=== PATIENT | male | born 1960 | race Caucasian/White ===

== ENCOUNTER 2020-07-09 17:01 | Emergency (ER) | payer OTHER ==
[2020-07-09 17:05] VITALS: RESP 18; TEMP 98
[2020-07-09] MEDS ORDERED: MECLIZINE 25 MG TAB PO STA (17:38)
--- NOTE | 2020-07-09 17:40 | ED ---
General Adult HPI - General Chief complaint: Dizziness Stated complaint: dizziness Time Seen by Provider: 07/09/20 17:05 Source: patient, RN notes reviewed, old records reviewed Mode of arrival: wheelchair Limitations: no limitations - History of Present Illness Initial comments: This is a 60-year-old male who presents emergency department stating that while he was at work he stood up and felt something was moving. Patient states when he walked he felt like things were swimming in front of him. Patient states she's had this happen once before while he was at work. Patient states recently he had a little upper respiratory cold and he states he still not completely over that. Patient denies any fever chills per patient denies any headache. Pa tient denies any numbness or weakness. Patient denies any chest pain difficulty breathing shortness breath or palpitations. Patient denies abdominal pain patient denies nausea vomiting diarrhea. Patient denies any new deafness or ringing in the ears. Patient states she does have quite a bit of waxes at times. - Related Data Previous Rx's Medication Instructions Recorded Meclizine [Antivert] 25 mg PO TID #20 tab 07/09/20 Allergies Allergy/AdvReac Type Severity Reaction Status Date / Time bee venom protein (honey bee) Allergy Rapid Verified 07/09/20 17:05 Heart Rate Review of Systems ROS Statement: Those systems with pertinent positive or pertinent negative responses have been documented in the HPI. ROS Other: All systems not noted in ROS Statement are negative. Past Medical History Past Medical History: Hypertension History of Any Multi-Drug Resistant Organisms: None Reported Past Surgical History: Hernia Repair Past Psychological History: No Psychological Hx Reported Smoking Status: Never smoker Past Alcohol Use History: None Reported Past Drug Use History: None Reported General Exam - General Exam Comments Initial Comments: GENERAL: Patient is well-developed and well-nourished. Patient is nontoxic and well- hydrated and is in mild distress. ENT: Neck is soft and supple. No significant lymphadenopathy is noted. Oropharynx is clear. Moist mucous membranes. Neck has full range of motion without eliciting any pain. EYES: The sclera were anicteric and conjunctiva were pink and moist. Extraocular movements were intact and pupils were equal round and reactive to light. Eyelids were unremarkable. PULMONARY: Unlabored respirations. Good breath sounds bilaterally. No audible rales rhonchi or wheezing was noted. CARDIOVASCULAR: There is a regular rate and rhythm without any murmurs gallops or rubs. ABDOMEN: Soft and nontender with normal bowel sounds. SKIN: Skin is clear with no lesions or rashes and otherwise unremarkable. NEUROLOGIC: Patient is alert and oriented x3. Cranial nerves II through XII are grossly intact. Motor and sensory are also intact. Normal speech, volume and content. Symmetrical smile. Finger to nose testing is normal bilaterally MUSCULOSKELETAL: Normal extremities with adequate strength and full range of motion. No lower extremity swelling or edema. No calf tenderness. LYMPHATICS: No significant lymphadenopathy is noted PSYCHIATRIC: Normal psychiatric evaluation. Limitations: no limitations Course Vital Signs 07/09/20 07/09/20 17:02 18:53 Temperature 98 F Pulse Rate 106 H 66 Respiratory 18 Rate Blood Pressure 156/88 144/87 O2 Sat by Pulse 99 Oximetry Procedures - Ear Wax Removal Left Ear Ear Canal(s) Curetted: plastic scoops Results: Re-examined: cerumen removed completely TM Visible: TM(s) intact, normal appearance Ear Canal: atraumatic Patient Tolerated Procedure: well Complications: no problems Medical Decision Making - Medical Decision Making EKG shows normal sinus rhythm at 60 bpm DE interval 126 QRS 98 QT interval 396 Q TC is 418. Patient's EKG shows no ST segment elevation or depression. Patient's CT of the brain shows no acute abnormality. Chest shows no acute abnormalities. I will back into the room and the patient's left ear canal was completely block with cerumen. I used a curet to remove all the cerumen and the patient stated already here better. Patient states the Antivert seemed to help his dizziness. - Lab Data Result diagrams: 07/09/20 17:46 07/09/20 17:46 Lab Results 07/09/20 07/09/20 07/09/20 Range/Units 17:46 17:46 17:46 WBC 7.9 (3.8-10.6) k/uL RBC 4.59 (4.30-5.90) m/uL Hgb 14.6 (13.0-17.5) gm/dL Hct 43.2 (39.0-53.0) % MCV 94.1 (80.0-100.0) fL MCH 31.8 (25.0-35.0) pg MCHC 33.9 (31.0-37.0) g/dL RDW 12.5 (11.5-15.5) % Plt Count 267 (150-450) k/uL MPV 7.5 Neutrophils % 74 % Lymphocytes % 19 % Monocytes % 5 % Eosinophils % 1 % Basophils % 1 % Neutrophils # 5.8 (1.3-7.7) k/uL Lymphocytes # 1.5 (1.0-4.8) k/uL Monocytes # 0.4 (0-1.0) k/uL Eosinophils # 0.1 (0-0.7) k/uL Basophils # 0.0 (0-0.2) k/uL PT 11.1 (9.0-12.0) sec INR 1.0 (<1.2) APTT 26.2 (22.0-30.0) sec Sodium 139 (137-145) mmol/L Potassium 4.1 (3.5-5.1) mmol/L Chloride 100 (98-107) mmol/L Carbon Dioxide 30 (22-30) mmol/L Anion Gap 9 mmol/L BUN 22 H (9-20) mg/dL Creatinine 1.12 (0.66-1.25) mg/dL Est GFR (CKD-EPI)AfAm 83 (>60 ml/min/1.73 sqM) Est GFR (CKD-EPI)NonAf 72 (>60 ml/min/1.73 sqM) Glucose 83 (74-99) mg/dL Calcium 9.9 (8.4-10.2) mg/dL Magnesium 2.2 (1.6-2.3) mg/dL Total Bilirubin 1.0 (0.2-1.3) mg/dL AST 33 (17-59) U/L ALT 20 (4-49) U/L Alkaline Phosphatase 54 (38-126) U/L Troponin I (0.000-0.034) ng/mL Total Protein 7.9 (6.3-8.2) g/dL Albumin 4.7 (3.5-5.0) g/dL 07/09/20 Range/Units 17:46 WBC (3.8-10.6) k/uL RBC (4.30-5.90) m/uL Hgb (13.0-17.5) gm/dL Hct (39.0-53.0) % MCV (80.0-100.0) fL MCH (25.0-35.0) pg MCHC (31.0-37.0) g/dL RDW (11.5-15.5) % Plt Count (150-450) k/uL MPV Neutrophils % % Lymphocytes % % Monocytes % % Eosinophils % % Basophils % % Neutrophils # (1.3-7.7) k/uL Lymphocytes # (1.0-4.8) k/uL Monocytes # (0-1.0) k/uL Eosinophils # (0-0.7) k/uL Basophils # (0-0.2) k/uL PT (9.0-12.0) sec INR (<1.2) APTT (22.0-30.0) sec Sodium (137-145) mmol/L Potassium (3.5-5.1) mmol/L Chloride (98-107) mmol/L Carbon Dioxide (22-30) mmol/L Anion Gap mmol/L BUN (9-20) mg/dL Creatinine (0.66-1.25) mg/dL Est GFR (CKD-EPI)AfAm (>60 ml/min/1.73 sqM) Est GFR (CKD-EPI)NonAf (>60 ml/min/1.73 sqM) Glucose (74-99) mg/dL Calcium (8.4-10.2) mg/dL Magnesium (1.6-2.3) mg/dL Total Bilirubin (0.2-1.3) mg/dL AST (17-59) U/L ALT (4-49) U/L Alkaline Phosphatase (38-126) U/L Troponin I <0.012 (0.000-0.034) ng/mL Total Protein (6.3-8.2) g/dL Albumin (3.5-5.0) g/dL Disposition Clinical Impression: Cerumen impaction, Vertigo Disposition: HOME SELF-CARE Condition: Good Instructions (If sedation given, give patient instructions): Vertigo (ED) Prescriptions: Meclizine [Antivert] 25 mg PO TID #20 tab Is patient prescribed a controlled substance at d/c from ED?: No Referrals: Nonstaff,Physician [Primary Care Provider] - 1-2 days Time of Disposition: 19:07
[2020-07-09 18:10] LABS: Basophils % (A) 1 %; Eosinophils # (A) 0.1 k/uL (0-0.7); Eosinophils % (A) 1 %; HCT 43.2 % (39.0-53.0); HGB 14.6 gm/dL (13.0-17.5); Lymphocytes # (A) 1.5 k/uL (1.0-4.8); Lymphocytes % (A) 19 %; MCH 31.8 pg (25.0-35.0); MCHC 33.9 g/dL (31.0-37.0); MCV 94.1 fL (80.0-100.0); Mean Platelet Volume 7.5; Monocytes # (A) 0.4 k/uL (0-1.0); Monocytes % (A) 5 %; Neutrophils # (A) 5.8 k/uL (1.3-7.7); Neutrophils % (A) 74 %; Platelet Count 267 k/uL (150-450); RBC 4.59 m/uL (4.30-5.90); RDW 12.5 % (11.5-15.5); WBC 7.9 k/uL (3.8-10.6)
[2020-07-09 18:11] LABS: Albumin 4.7 g/dL (3.5-5.0); Calcium 9.9 mg/dL (8.4-10.2); Magnesium 2.2 mg/dL (1.6-2.3); Potassium 4.1 mmol/L (3.5-5.1); Total Protein 7.9 g/dL (6.3-8.2)
[2020-07-09 18:31] LABS: Partial Thromboplastin Time 26.2 sec (22.0-30.0); Prothrombin Time 11.1 sec (9.0-12.0)
--- NOTE | 2020-07-09 18:38 | CT ---
EXAMINATION TYPE: CT brain wo con DATE OF EXAM: 07/09/2020 COMPARISON: None HISTORY: Dizziness for [address] DLP: 1090.4 mGycm Automated exposure control for dose reduction was used. Exam performed without contrast. Ventricles have normal size. There is no mass effect nor midline shift. There is no sign of intracran ial hemorrhage. The calvarium is intact. There is no evidence of cerebral edema. There is calcified s ebaceous cyst in the right parietal scalp. IMPRESSION: Negative CT scan of the brain.
[2020-07-09 18:54] VITALS: BP 144/87; PULSE 66
--- NOTE | 2020-07-09 18:54 | XR ---
EXAMINATION TYPE: XR chest 2V DATE OF EXAM: 07/09/2020 COMPARISON: NONE HISTORY: Dizziness TECHNIQUE: 3 views FINDINGS: Heart is normal. Lungs are clear of infiltrate. There is no heart failure. There are no hil ar masses. There are chest leads. Costophrenic angles are clear. IMPRESSION: No active cardiopulmonary disease. Normal heart.
== END 2020-07-09 19:20 | disposition home or self-care (01) ==
LOC: EC 17:01
DX: H61.22 Impacted cerumen, left ear (principal); I10 Essential (primary) hypertension
CPT/HCPCS: 36415; 70450; 71046; 80053; 83735; 84484; 85025; 85610; 85730; 93005

== ENCOUNTER 2021-08-04 21:49 | Emergency (ER) | payer OTHER ==
--- NOTE | 2021-08-05 01:01 | ED ---
General Adult HPI - General Chief complaint: Anxiety Stated complaint: Prescription Refill Time Seen by Provider: 08/05/21 00:30 Source: patient, RN notes reviewed Mode of arrival: ambulatory Limitations: no limitations - History of Present Illness Initial comments: 61-year-old male presents to the emergency department requesting a refill on his Xanax. Patient states last prescribed 0.5 Xanax on May 07 by his PCP who has since left the [facility]. Patient states he has been unable to establish with a new primary care provider and has been cutting his Xanax in half in order to extend the April prescription. Patient states he contacted the nurse line provided by his insurance and was advised to go to the nearest emergency department as withdrawal from benzodiazepines are associated with seizures. Patient states he has been taking his Xanax twice daily though in the reduced strength. States he experienced a sensation of panic when he was on the phone with the nurse, but has not experienced any with control symptoms or seizure- like activity. He is accompanied today by his . He denies any fever, chills, headache, chest pain, shortness of breath abdominal pain, nausea, vomiting, diarrhea, or dysuria. - Related Data Previous Rx's Medication Instructions Recorded Meclizine [Antivert] 25 mg PO TID #20 tab 07/09/20 ALPRAZolam [Xanax] 0.5 mg PO BID #10 tablet 08/05/21 Allergies Allergy/AdvReac Type Severity Reaction Status Date / Time bee venom protein (honey bee) Allergy Rapid Verified 08/04/21 22:03 Heart Rate Review of Systems ROS Statement: Those systems with pertinent positive or pertinent negative responses have been documented in the HPI. ROS Other: All systems not noted in ROS Statement are negative. Past Medical History Past Medical History: Hypertension History of Any Multi-Drug Resistant Organisms: None Reported Past Surgical History: Hernia Repair Past Psychological History: Anxiety Smoking Status: Former smoker Past Alcohol Use History: None Reported Past Drug Use History: None Reported General Exam Limitations: no limitations (Well-developed, well-nourished male in no acute distress. Initial temperature 97.7, pulse 69, respirations 24, blood pressure 160/98, pulse ox 100% on room air.) General appearance: alert, in no apparent distress Eye exam: Present: normal appearance, PERRL, EOMI. Absent: scleral icterus, conjunctival injection, nystagmus, periorbital swelling Respiratory exam: Present: normal lung sounds bilaterally. Absent: respiratory distress, wheezes, rales, rhonchi, stridor, chest wall tenderness Cardiovascular Exam: Present: regular rate, normal rhythm, normal heart sounds. Absent: systolic murmur, diastolic murmur, rubs, gallop, clicks GI/Abdominal exam: Present: soft, normal bowel sounds. Absent: distended, tenderness, guarding, rebound, rigid Neurological exam: Present: alert, oriented X3, CN II-XII intact, normal gait Expanded Patient oriented to: Present: person, place. Absent: time Speech: Present: fluid speech Cranial nerves: EOM's Intact: Normal, Nystagmus: Normal Motor strength exam: RUE: 5, LUE: 5, RLE: 5, LLE: 5 Eye Response: (4) open spontaneously Motor Response: (6) obeys commands Verbal Response: (5) oriented Frandy Total: 15 Psychiatric exam: Present: normal affect, anxious (Mildly anxious at baseline.) Skin exam: Present: warm, dry, intact, normal color. Absent: rash Course Vital Signs 08/04/21 08/05/21 08/05/21 21:52 00:00 02:27 Temperature 97.7 F 97.9 F Pulse Rate 69 78 72 Respiratory 24 18 18 Rate Blood Pressure 160/98 152/89 152/77 O2 Sat by Pulse 100 99 99 Oximetry - Reevaluation(s) Reevaluation #1: 08/05/21 00:30 MAPS score 220. Last prescription refill 05/07/21 for Xanax 0.5mg BID. Qty #60. 08/05/21 01:30 Discussed importance of establishing with primary care as soon as possible as he would only be prescribed a very limited quantity of Xanax from the emergency department. Patient verbalizes understanding. Medical Decision Making - Medical Decision Making 61-year-old male with a past medical history of hypertension and anxiety presents to the emergency department requesting a medication refill on his Xanax. Upon exam, patient is well-appearing and in no acute distress; he is well-kempt. He states that he has been taking 0.5mg Xanax twice daily for years but his PCP recently relocated and he has not established with a new provider. Explained that he was here because he was concerned about having about having a seizure as he had spoke with a nurse hotline that informed him of this risk. Patient has been taking a reduced dose of his Xanax in effort to extend his supply. Denies purchasing any tablets illegally. He is neurologically intact with no evidence or concerns for seizure activity. Did discuss the importance of establishing with a new primary care provider as soon as possible. Explained that a very limited supply of Xanax would be refilled from the emergency department. Patient is agreeable with this plan of care. He is provided with a list of primary care providers in the area for follow-up. Return parameters were discussed in detail. Patient and spouse verbalized understanding and agreed with this plan. Attending: Mg. Disposition Clinical Impression: Encounter for medication refill Disposition: HOME SELF-CARE Condition: Stable Instructions (If sedation given, give patient instructions): Alprazolam (By mouth), Generalized Anxiety Disorder (ED), Medicine Refill (ED) Additional Instructions: Please do your very best to establish with a new primary care provider as soon as possible. Take medications as prescribed. You were prescribed a work note for Thursday. Return to the emergency department with any new, worsening, or concerning symptoms. Prescriptions: ALPRAZolam [Xanax] 0.5 mg PO BID #10 tablet Is patient prescribed a controlled substance at d/c from ED?: Yes When asked, does pt state using other controlled substances?: No If prescribed controlled substance>3 days was MAPS reviewed?: Yes (MAPS score 220) Referrals: None,Stated [Primary Care Provider] - 1-2 days Time of Disposition: 01:41
[2021-08-05] MEDS ORDERED: ALPRAZolam 0.5 MG TAB PO STA (02:10)
[2021-08-05 02:27] VITALS: RESP 18
[2021-08-05 02:28] VITALS: BP 152/77; PULSE 72; TEMP 97.9
== END 2021-08-05 02:25 | disposition home or self-care (01) ==
LOC: EC 21:49
DX: Z76.0 Encounter for issue of repeat prescription (principal); Z79.899 Other long term (current) drug therapy; I10 Essential (primary) hypertension; F41.9 Anxiety disorder, unspecified; Z87.891 Personal history of nicotine dependence
CPT/HCPCS: 99281

== ENCOUNTER 2021-08-09 15:41 | Emergency (ER) | payer OTHER ==
[2021-08-09 15:46] VITALS: PULSE 73
--- NOTE | 2021-08-09 17:35 | ED ---
General Adult HPI - General Chief complaint: Recheck/Abnormal Lab/Rx Stated complaint: Med Refill Time Seen by Provider: 08/09/21 17:23 Source: patient Mode of arrival: ambulatory Limitations: no limitations - History of Present Illness Initial comments: Patient is a 61-year-old male who presents to the emergency department requesting a Xanax refill. Patient was prescribed a short course of Xanax on 08/04/21 here in the emergency department due to his primary care provider leaving the state. Patient states he is still unable to find a new primary care provider who will prescribe him Xanax. He takes 0.5 mg twice a day. Patient is concerned he will have a seizure if he stops taking Xanax. He does not have history of seizure.Patient has no other concerns at this time including fever, chills, headache, shortness of breath, cough, chest pain, abdominal pain, nausea, vomiting, diarrhea, and burning with urination. - Related Data Previous Rx's Medication Instructions Recorded Meclizine [Antivert] 25 mg PO TID #20 tab 07/09/20 ALPRAZolam [Xanax] 0.5 mg PO BID #10 tablet 08/05/21 ALPRAZolam [Xanax] 0.5 mg PO BID PRN 5 Days #10 tablet 08/09/21 Allergies Allergy/AdvReac Type Severity Reaction Status Date / Time bee venom protein (honey bee) Allergy Rapid Verified 08/09/21 15:45 Heart Rate Review of Systems ROS Statement: Those systems with pertinent positive or pertinent negative responses have been documented in the HPI. ROS Other: All systems not noted in ROS Statement are negative. Past Medical History Past Medical History: Hypertension History of Any Multi-Drug Resistant Organisms: None Reported Past Surgical History: Hernia Repair Past Psychological History: Anxiety Smoking Status: Former smoker Past Alcohol Use History: None Reported Past Drug Use History: None Reported General Exam Limitations: no limitations General appearance: alert, in no apparent distress Head exam: Present: atraumatic, normocephalic, normal inspection Eye exam: Present: normal appearance, PERRL, EOMI. Absent: scleral icterus, conjunctival injection, periorbital swelling Neck exam: Present: normal inspection, full ROM Respiratory exam: Present: normal lung sounds bilaterally. Absent: respiratory distress, wheezes, rales, rhonchi, stridor Cardiovascular Exam: Present: regular rate, normal rhythm, normal heart sounds. Absent: systolic murmur, diastolic murmur, rubs, gallop, clicks GI/Abdominal exam: Present: soft, normal bowel sounds. Absent: distended, tenderness, guarding, rebound, rigid Back exam: Present: normal inspection Neurological exam: Present: alert, oriented X3, CN II-XII intact Psychiatric exam: Present: normal affect, normal mood Skin exam: Present: warm, dry, intact, normal color. Absent: rash Course Vital Signs 08/09/21 08/09/21 15:42 17:42 Temperature 97.7 F 97.9 F Pulse Rate 73 73 Respiratory 18 16 Rate Blood Pressure 159/103 162/95 O2 Sat by Pulse 99 100 Oximetry Medical Decision Making - Medical Decision Making This is a 61 year-old male who presents for a Xanax refill. Patient is well- appearing and in no acute distress. He is well-kept. Patient and discussed that I will give him a short course of Xanax but that it is very important to establish a new primary care provider or even a psychiatrist. Patient states that he does not want to see a psychiatrist because they will want him to follow-up weekly. I reiterated that it is necessary to establish psychiatric care for long-term Xanax prescription if patient cannot find a primary care provider. He verbalizes understanding and is agreeable to plan. Dr. Goins is my attending. Disposition Clinical Impression: Encounter for medication refill Disposition: HOME SELF-CARE Condition: Good Instructions (If sedation given, give patient instructions): Anxiety (ED) Additional Instructions: Please establish a primary care provider or psychiatrist for next Xanax refill. Return to the emergency department if you experience new or concerning symptoms. Prescriptions: ALPRAZolam [Xanax] 0.5 mg PO BID PRN 5 Days #10 tablet PRN Reason: Anxiety Is patient prescribed a controlled substance at d/c from ED?: Yes When asked, does pt state using other controlled substances?: No If prescribed controlled substance>3 days was MAPS reviewed?: Yes (180) If opioid is for acute pain is fill amount 7 days or less?: Yes Referrals: None,Stated [Primary Care Provider] - 1-2 days Time of Disposition: 17:35
[2021-08-09 17:43] VITALS: BP 162/95; RESP 16; TEMP 97.9
== END 2021-08-09 17:46 | disposition home or self-care (01) ==
LOC: EC 15:41
DX: Z76.0 Encounter for issue of repeat prescription (principal); I10 Essential (primary) hypertension; F41.9 Anxiety disorder, unspecified; Z87.891 Personal history of nicotine dependence
CPT/HCPCS: 99281

== ENCOUNTER → 2022-02-13 | Outpatient (CLI) | payer OTHER ==
--- NOTE | 2022-02-13 12:48 | CA ---
Stress Echo Report Cesar Abrams Age: 61 Gender: M : 1960 Exam Date: 02/13/2022 09:47 Exam Location: [facility] Ht (in): 72 Wt (lb): 154 Ordering Physician: Chanel Rachel DO Referring Physician: IRENE,, Collision Repair Technician: Alphonse Kennedy Technologist Procedure CPT: Indication: R94.31 Abn ECG ICD-9 Codes: Rhythm: Patient History: chest pain and abnormal ekg Cardiac Medications: Medications in past 24 hours: Contrast: Stress Results Protocol: Glenn Total dose(mL): Exercise Duration (min:sec): Max ST Depression (mm): Angina Score: Craig Score: METS: 4.8 Resting HR: 55 Resting BP: 143 / 78 Peak HR: 125 Peak BP: 153 / 99 Max Predicted HR: 160 78 % Max Predicted HR Target HR: 136 Double Product: [id number] Stress Summary: The patient's target heart rate was not achieved BP Response: Normal Reason for Termination: Lightheaded/near faint Cardiac Symptoms: ECG Analysis Resting ECG: Normal sinus rhythm, normal ECG Stress ECG: No abnormal ST/T wave changes with exercise Arrhythmia: Frequent PVCs, Ventricular couplets, Non-sustained ventricular tachycardia (3-5 beats) Echo Analysis Resting Echo: Normal resting echocardiogram. Peak Echo Analysis: Normal treadmill stress echocardiogram. MEASUREMENTS (Male/Female) Normal Values 2D ECHO LV Diastolic Diameter PLAX 5.8 cm 4.2 - 5.9 / 3.9 - 5.3 cm LV Systolic Diameter PLAX 3.7 cm IVS Diastolic Thickness 1.0 cm 0.6 - 1.0 / 0.6 - 0.9 cm LVPW Diastolic Thickness 1.1 cm 0.6 - 1.0 / 0.6 - 0.9 cm LV Relative Wall Thickness 0.4 CONCLUSIONS 1. Decrease exercise tolerance 2. Frequent ventricular ectopic activity with couplets and triplets 3. Nondiagnostic electrocardiographic stress test secondary to the inability to achieve 85% maximum redictate heart rate 4. Nondiagnostic stress echocardiogram secondary to the inability to achieve 85% maximum predicted heart rate, the rate achieved there is no evidence of stress-induced ischemia. If clinically indicated a pharmacological stress imaging would be helpful. Dr. Hugh Garza MD (Electronically Signed) Final Date: 13 February 2022 12:47
== END | disposition home or self-care (01) ==
LOC: RADNMMAIN 09:09
PROVIDERS: ATTEND Family Medicine
DX: R94.31 Abnormal electrocardiogram [ECG] [EKG] (principal)
CPT/HCPCS: 93351